=== PATIENT | female | born 1985 | race Caucasian/White ===

== ENCOUNTER 2018-01-20 10:48 | Emergency (ER) | payer OTHER, BC ==
[2018-01-20 10:56] VITALS: BP 109/75; PULSE 86; TEMP 98.2; BMI 22.6
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
[2018-01-20] MEDS ORDERED: ACETAMINOPHEN 325 MG TABLET (FP) PO ONE (11:55)
[2018-01-20] MEDS ORDERED: ACETAMINOPHEN 325 MG TABLET (FP) ONE (11:57)
== END 2018-01-20 11:59 | disposition home or self-care (01) ==
LOC: JERFT 10:48
DX: S29.012A Strain of muscle and tendon of back wall of thorax, initial encounter (principal); V49.3XXA Car occupant (driver) (passenger) injured in unspecified nontraffic accident, initial encounter; Y93.9 Activity, unspecified; Y92.410 Unspecified street and highway as the place of occurrence of the external cause
CPT/HCPCS: 99281-25